=== PATIENT | female | born 1980 ===

== ENCOUNTER 2017-10-01 16:30 | Emergency (ER) | payer MEDICAID ==
[2017-10-01 16:43] VITALS: BMI 27.9
[2017-10-01 17:56] LABS: HCG,QUALITATIVE URINE NEGATIVE (NEGATIVE)
[2017-10-01 17:58] LABS: SQUAMOUS EPITHIAL 1 /hpf (0-5); URINE BACTERIA RARE (<OCC); URINE BILIRUBIN NEGATIVE (NEGATIVE); URINE BLOOD 2+ (NEGATIVE); URINE CLARITY Clear (Clear); URINE COLOR Straw (YELLOW); URINE GLUCOSE (UA) NORMAL (Normal); URINE LEUKOCYTE ESTERASE NEG Leu/uL (Negative); URINE NITRATE NEGATIVE (NEGATIVE); URINE PROTEIN NEGATIVE (NEGATIVE); URINE UROBILINOGEN NORMAL mg/dL (0.2-1.0)
[2017-10-01 19:12] LABS: BASO % 0.2 % (0.0-2.0); EOS # 0.5 K/uL (0.0-0.7); EOS % 5.7 % (0.0-4.0); HEMOGLOBIN 11.8 g/dL (11.0-16.0); LYMPH # 2.3 K/uL (1.0-4.3); LYMPH % 27.3 % (20.0-40.0); MEAN CELL VOLUME 83.7 fL (81.0-99.0); MEAN CORPUSCULAR HEMOGLOBIN 27.3 pg (27.0-31.0); MEAN CORPUSCULAR HGB CONC 32.6 g/dL (33.0-37.0); MEAN PLATELET VOLUME 9.3 fL (7.2-11.7); MONO # 0.4 K/uL (0.0-0.8); NEUT # 5.2 K/uL (1.8-7.0); NEUT % 61.8 % (50.0-75.0); RBC 4.33 Mil/uL (3.80-5.20); RED CELL DISTRIBUTION WIDTH 14.7 % (11.5-14.5); WHITE BLOOD COUNT 8.3 K/uL (4.8-10.8)
[2017-10-01 19:26] LABS: ALB/GLOB RATIO 1.2 (1.0-2.1); ALT/SGPT 15 U/L (9-52); AST/SGOT 18 U/L (14-36); BLOOD UREA NITROGEN 9 mg/dL (7-17); CALCIUM 8.8 mg/dl (8.6-10.4); GFR AFRICAN-AMERICAN > 60; GFR NON-AFRICAN AMERICAN > 60; LIPASE 129 U/L (23-300)
--- NOTE | 2017-10-01 19:31 | C.PDOC ---
History Of Present Illness 37 year old female presents to the ER complaining of RUQ abdominal pain, mild, coming and going since yesterday. Pain continues today and seems more persistent and constant, prompting patient to come in for evaluation. Today pain is radiating to epigastric area and around to the back. No change with meals. No change in bowel movements or urination. Pain is described as crampy, and worsens with movement. No belching, fever, nausea, or vomiting. PMD: none Time Seen by Provider: 10/01/17 18:40 Chief Complaint (Nursing): Abdominal Pain History Per: Patient History/Exam Limitations: no limitations Onset/Duration Of Symptoms: Days (x2) Current Symptoms Are (Timing): Still Present Radiation Of Pain To:: Back Associated Symptoms: denies: Nausea, Vomiting, Constipation, Urinary Symptoms Exacerbating Factors: Movement Past Medical History Reviewed: Historical Data, Nursing Documentation, Vital Signs Vital Signs: Last Vital Signs Temp Pulse 72 10/01/17 20:35 Resp 18 10/01/17 20:35 BP 103/68 10/01/17 20:35 Pulse Ox 100 10/01/17 20:35 - Medical History PMH: No Chronic Diseases Surgical History: Family History: States: Unknown Family Hx - Social History Hx Tobacco Use: No Hx Alcohol Use: No Hx Substance Use: No - Immunization History Hx Tetanus Toxoid Vaccination: No Hx Influenza Vaccination: No Hx Pneumococcal Vaccination: No Review Of Systems Except As Marked, All Systems Reviewed And Found Negative. Constitutional: Negative for: Fever, Chills Gastrointestinal: Positive for: Abdominal Pain. Negative for: Nausea, Vomiting , Diarrhea, Constipation, Other (Gas) Genitourinary: Negative for: Dysuria, Frequency, Incontinence Musculoskeletal: Positive for: Back Pain Physical Exam - Physical Exam Appears: Non-toxic, No Acute Distress Skin: Normal Color, Warm, Dry Head: Atraumatic, Normacephalic Eye(s): bilateral: Normal Inspection, PERRL, EOMI Oral Mucosa: Moist Throat: Normal Neck: Normal ROM, Supple Chest: Symmetrical Cardiovascular: Rhythm Regular, No Murmur Respiratory: Normal Breath Sounds, No Accessory Muscle Use Gastrointestinal/Abdominal: Soft, Tenderness (to right upper quadrant), No Guarding, No Rebound Back: Normal Inspection, No CVA Tenderness, No Vertebral Tenderness, No Paraspinal Tenderness Extremity: Normal ROM, No Pedal Edema, No Deformity Neurological/Psych: Oriented x3, Normal Speech ED Course And Treatment - Laboratory Results Result Diagrams: 10/01/17 19:08 10/01/17 19:08 Lab Interpretation: No Acute Changes - CT Scan/US Abdominal ultrasound Other Rad Studies (CT/US): Read By Radiologist, Radiology Report Reviewed CT/US Interpretation: ccession No. : [id number]. Patient Name / ID : LO [id number] / [id number]. Exam Date : 10/01/2017 20:07:51 ( Approved ). Study Comment : Sex / Age : F / 37Y. Creator : Tamika Castellanos MD. Dictator : Cylinder Checker : Core Baker : Tamika Castellanos MD. Approver2 : Report Date : 10/01/2017 21:30:00. My Comment : . [facility] Division of Radiology. [address] [place] [address]. Tel. no. . . . Patient Name: KATARINA BLANCHARD . Pt. Address: [address] [place] [address]. Rec #: [id number]. [place] [address]: Shameka JHA,Nicolette Anand. Pt Order Location: [facility]. : 1980 Female Age: 37 Order #: [id number]. Reason for exam: abd pain. . . . . . Ultrasound. . . ABDOMEN COMPLETE Exam Date: . . This imaging exam was performed at [facility]. EXAM: US Abdomen Complete. . EXAM DATE/TIME: 10/01/2017 6:56 PM. . CLINICAL HISTORY: 37 years old, female; Pain; Abdominal pain; Generalized; Additional info: Abd. pain. . TECHNIQUE: Real-time ultrasound of the abdomen (complete) with image documentation. . COMPARISON: No relevant prior studies available. . FINDINGS: Gallbladder: Large 1.3 cm stone in the gallbladder neck. 2.3 cm round ,. echogenic focus in the gallbladder neck, which could represent a sludgeball, . given its appearance. Gallbladder wall appears edematous and mildly thickened ,. measuring 4 mm (normal less than 3 mm). Small amount of pericholecystic fluid. is seen. Reportedly negative sonographic Bynum's sign. . Common bile duct: Does not appear abnormally dilated, measuring less than 6. mm in diameter. . Liver: Within normal limits in appearance. Measures 14 cm in length. Normal. flow seen in the main portal vein on color and Doppler imaging. . Pancreas: Imaged portions appear unremarkable. . Right kidney: Within normal limits in appearance. Measures 11.3 cm in. length. No evidence of hydronephrosis. . Left kidney: Within normal limits in appearance. Measures 10.4 cm in length. No evidence of hydronephrosis. . Spleen: Poorly seen due to gas. Grossly normal in appearance. Measures 7.8 cm. in length. . Aorta: Imaged portions appear unremarkable. No aneurysm visualized. . Inferior vena cava: Imaged portions appear unremarkable. . IMPRESSION: Findings suspicious for early acute cholecystitis. Large stone in the. gallbladder neck, associated with a small amount of pericholecystic fluid, and. an edematous and mildly thickened gallbladder wall. Recommend clinical. correlation. . See above for remaining findings. . . Dictated By: Tamika Castellanos MD. Dictated Date/Time: 10/01/172129. Signed By: Tamika Castellanos MD. Date Signed: 10/01/172129. Transcribed By: [facility]. Transcribe Date/Time : 10/01/172129. RMMP02/MT - Physician Consult Information Time Consulting Physician Contacted: 22:18 Physician Contacted: Annmarie Hendrickson Outcome Of Conversation: Case discussed with Dr Hendrickson. Patient prefers to go home and follow up as an outpatient with her primary in [place]. She has no vomiting or fever and is able to eat without difficulty. She will be given Bentyl prn. Advised to return to the ED for increased pain, nausea, vomiting or fever. Medical Decision Making Medical Decision Making: Time: 18:52 Initial Plan: * CMP * Lipase * CBC * Bentyl 20 mg PO * HCG, qualitative * Urinalysis * US Abdomen Complete Disposition Counseled Patient/Family Regarding: Studies Performed, Diagnosis, Need For Followup, Rx Given - Disposition Referrals: [facility] [Outside] Disposition: HOME/ ROUTINE Disposition Time: 22:21 Condition: STABLE Additional Instructions: Follow up with your doctor for a referral to a surgeon. Prescriptions: Dicyclomine [Bentyl] 20 mg PO QID PRN #30 tab PRN Reason: Pain, Moderate (4-7) Instructions: Gallstones Forms: [employer] (Cuban) - Clinical Impression Clinical Impression: Cholecystitis - Scribe Statement The provider has reviewed the documentation as recorded by the Ric Cartagena Provider Attestation: All medical record entries made by the Haileyibzabrina were at my direction and personally dictated by me. I have reviewed the chart and agree that the record accurately reflects my personal performance of the history, physical exam, medical decision making, and the department course for this patient. I have also personally directed, reviewed, and agree with the discharge instructions and disposition.
[2017-10-01 20:36] VITALS: RESP 18; O2SAT 100
--- NOTE | 2017-10-01 21:30 | US ---
EXAM: US Abdomen Complete EXAM DATE/TIME: 10/01/2017 6:56 PM CLINICAL HISTORY: 37 years old, female; Pain; Abdominal pain; Generalized; Additional info: Abd pain TECHNIQUE: Real-time ultrasound of the abdomen (complete) with image documentation. COMPARISON: No relevant prior studies available. FINDINGS: Gallbladder: Large 1.3 cm stone in the gallbladder neck. 2.3 cm round, echogenic focus in the gallbladder neck, which could represent a sludgeball, given its appearance. Gallbladder wall appears edematous and mildly thickened, measuring 4 mm (normal less than 3 mm). Small amount of pericholecystic fluid is seen. Reportedly negative sonographic Bynum's sign. Common bile duct: Does not appear abnormally dilated, measuring less than 6 mm in diameter. Liver: Within normal limits in appearance. Measures 14 cm in length. Normal flow seen in the main portal vein on color and Doppler imaging. Pancreas: Imaged portions appear unremarkable. Right kidney: Within normal limits in appearance. Measures 11.3 cm in length. No evidence of hydronephrosis. Left kidney: Within normal limits in appearance. Measures 10.4 cm in length. No evidence of hydronephrosis. Spleen: Poorly seen due to gas. Grossly normal in appearance. Measures 7.8 cm in length. Aorta: Imaged portions appear unremarkable. No aneurysm visualized. Inferior vena cava: Imaged portions appear unremarkable. IMPRESSION: Findings suspicious for early acute cholecystitis. Large stone in the gallbladder neck, associated with a small amount of pericholecystic fluid, and an edematous and mildly thickened gallbladder wall. Recommend clinical correlation. See above for remaining findings.
[2017-10-01 22:37] VITALS: BP 100/63; PULSE 77; TEMP 98.9
== END 2017-10-01 22:35 | disposition home or self-care (01) ==
LOC: C.ER 16:30
DX: K81.9 Cholecystitis, unspecified (principal)